=== PATIENT | female | born 1985 | race Caucasian/White ===

== ENCOUNTER 2016-09-02 20:31 | Emergency (ER) | payer OTHER ==
[~2016-09-02] VITALS: Ht 162.6 cm; Wt 54.4 kg
[2016-09-02] MEDS ORDERED: CITA20TA4 PO (21:24)
[2016-09-02] MEDS ORDERED: SUBUTEX PO (21:24)
[2016-09-02] MEDS ORDERED: PRENTAB81 PO (21:24)
--- NOTE | 2016-09-02 21:26 | PD ---
HPI Chief Complaint drug abuser needs viability test to be acted , having no problem Date Seen: September 02, 2016 Travel History International Travel<30 Days: No Contact w/Intl Traveler<30Days: No Known Affected Area: No History of Present Illness HPI 31 yo WF PCS [2] at 24 wks going into drug rehab , needs " viability" test before being allowed into rehab / acted , no complaints , FHR WNL Para: 2 : 3 History Obstetric History Obstetric History C section 2 Past Surgical History Narrative Surgical C sections Social History Alcohol Use: Yes Tobacco Use: Yes Substance Abuse: Yes Review of Systems General / Constitutional: No: Fever, Weight Gain, Chills, Other Eyes: No: Diploplia, Blurred Vision, Visual changes, Pain, Photophobia HENT: No: Headaches, Vertigo, Lightheadedness Cardiovascular: No: Irregular Rhythm, Chest Pain or Discomfort, Palpitations, Tachycardia, Syncope, Varicosities, Edema, Cyanosis Respiratory: No: Cough, Short of Breath, Other Gastrointestinal: No: Nausea, Vomiting, Diarrhea Genitourinary: No: Decreased Urinary Output, Oliguria Musculoskeletal: No: Limited ROM, Weakness, Cramping, Edema, Pain Skin: No Rash, No Itching, No Dryness, No Lumps, No Change in Pigmentation, No Change in Nails, No Alopecia, No Lesions Neurologic: No: Weakness, Dizziness, Syncope, Focal Abnormalities, Coordination Problem, Headache, Slurred Speech, Seizures Psychiatric: No: Depression, Suicidal Ideations, Homicidal Ideation Endocrine: No: Heat Intolerance, Cold Intolerance, Polydipsia, Polyuria, Other Physical Exam Narrative GENERAL: Well-nourished, well-developed patient. SKIN: Warm and dry. HEAD: Normocephalic and atraumatic. EYES: No scleral icterus. No injection or drainage. ENT: No nasal drainage noted. Mucous membranes pink. Airway patent. NECK: Supple, trachea midline. No JVD. CARDIOVASCULAR: Regular rate and rhythm without murmurs, gallops, or rubs. RESPIRATORY: Breath sounds equal bilaterally. No accessory muscle use. BREASTS: Bilateral exam showed no masses , no retractions, no nipple discharge. ABDOMEN/GI: Abdomen soft, non-tender, bowel sounds present, no rebound, no guarding Gravid to [24-] weeks size Fundal Height: [24-] GENITOURINARY: External G ] Presentation: [vtx-] Membranes: [intact Uterine Contractions: [0-] FHT's: Category: [1-] Baseline: [144-] EXTREMITIES: No cyanosis or edema. BACK: Nontender without obvious deformity. No CVA tenderness. NEUROLOGICAL: Awake and alert. Motor and sensory grossly within normal limits. Five out of 5 muscle strength in all muscle groups. Normal speech. Data Data Labs US -- viable female , + CM , nl AFV , ant placenta , normal anatomy scan MDM Interpretation(s) 31 yo WF PCS at 24 wks with normal fetus on US Plan Admit to rehab Diagnosis Diagnosis: Primary Impression: Drug abuse during Disposition: 01 DISCHARGE HOME Condition: Stable Patient Instructions: General Instructions Departure Forms: Tests/Procedures Enrique Zepeda II, MD September 02, 2016 21:26
[2016-09-03] MEDS ORDERED: BUPR2SUB SL (23:46)
== END 2016-09-02 21:52 | disposition home or self-care (01) ==
LOC: HOBED 20:31
DX: O99.322 Drug use complicating pregnancy, second trimester (principal); F19.10 Other psychoactive substance abuse, uncomplicated; Z3A.24 24 weeks gestation of pregnancy
CPT/HCPCS: 76815

== ENCOUNTER → 2016-12-31 | Outpatient (CLI) | payer MEDICAID ==
[~2016-12-31] MED LIST: BUSP10TA PO; CITA20TA4 PO; MEDR150I IM; MULT-65 PO; TRAZ50TA12 PO
[2016-12-31 13:17] LABS: AUTOMATED NEUTROPHIL # 4.1 TH/MM3 (1.8-7.7); BASOPHIL # 0.1 TH/MM3 (0-0.2); BASOPHIL % 0.9 % (0.0-2.0); EOSINOPHIL # 0.2 TH/MM3 (0-0.4); EOSINOPHIL % 2.5 % (0.0-4.0); HEMATOCRIT 35.7 % (35.0-46.0); LYMPH % 40.2 % (9.0-44.0); LYMPHOCYTE # 3.2 TH/MM3 (1.0-4.8); MEAN CELL VOLUME 82.6 FL (80.0-100.0); MEAN CORPUSCULAR HEMOGLOBIN 28.3 PG (27.0-34.0); MEAN CORPUSCULAR HGB CONC 34.2 % (32.0-36.0); MONO % 5.4 % (0.0-8.0); PLATELET COUNT 216 TH/MM3 (150-450); RED BLOOD COUNT 4.32 MIL/MM3 (4.00-5.30); RED CELL DISTRIBUTION WIDTH 14.1 % (11.6-17.2)
[2016-12-31 13:20] LABS: BLOOD, URINE SMALL (NEG); COMMENT (UR) CULT NOT INDICATED; CULTURE IF INDICATED CULT NOT INDICATED; GLUCOSE,URINE NEG (NEG); KETONE, URINE NEG (NEG); NITRITE,URINE NEG (NEG); PH, URINE 6.5 (5.0-8.5); SQUAMOUS EPITHELIAL CELL URINE <1 /hpf (0-5); URINE COLOR LIGHT-YELLOW (YELLW/STRAW)
[2016-12-31 13:27] LABS: ALT (GPT) 43 U/L (10-53); ANION GAP 7 MEQ/L (5-15); AST (GOT) 28 U/L (15-37); BICARBONATE 24.9 MEQ/L (21.0-32.0); BLOOD UREA NITROGEN 8 MG/DL (7-18); CHLORIDE 102 MEQ/L (98-107); GLOMERULAR FILTRATION RATE 89 ML/MIN (>89); GLUCOSE,FASTING 77 MG/DL (74-99); POTASSIUM 4.1 MEQ/L (3.5-5.1); SODIUM (NA) 134 MEQ/L (136-145)
[2016-12-31 13:29] LABS: ALKALINE PHOSPHATASE 72 U/L (45-117); TOTAL BILIRUBIN ADULT 0.3 MG/DL (0.2-1.0)
[2016-12-31 13:47] LABS: HEMO FLAGS AUTO DIFF
[2016-12-31 13:48] LABS: PLATELET ESTIMATE SMEAR NORMAL (NORMAL); PLATELET MORPHOLOGY NORMAL (NORMAL)
[2016-12-31 13:49] LABS: SCAN/DIFF AUTO DIFF CONFIRMED
== END ==
LOC: CPRE 12:12
PROVIDERS: ATTEND Obstetrics & Gynecology Gynecology
DX: Z01.812 Encounter for preprocedural laboratory examination (principal); Z30.2 Encounter for sterilization
CPT/HCPCS: 36415; 80053; 81001; 85025

== ENCOUNTER → 2017-01-10 | Day surgery (SDC) | payer MEDICAID ==
--- NOTE | 2016-12-31 12:47 | MH ---
cc: LANA WORRELL MD, JESSE S. MD DATE OF ADMISSION: 01/03/2017 DATE OF : 1985 REASON FOR ADMISSION: Scheduled for admission on January 03 for laparoscopic salpingectomy. The patient is a 31-year-old white female 3, para 3, status post two C-sections and one V-Back who wants to proceed with surgical sterilization. Patient is presently in rehab with [facility]. She has been off of opioids for several months, she quit cigarette smoking about four months ago. She is on Depo-Provera now. The patient has history of hepatitis C, otherwise negative for heart, lung, liver disease, diabetes or stroke. MEDICATIONS 1. Depo-Provera. 2. Trazodone 50 mg q.h.s. 3. BuSpar 10 mg b.i.d. 4. Celexa 20 mg 20 mg daily. ALLERGIES None PAST SURGICAL HISTORY x2 SOCIAL HISTORY Formal she SOCIAL HISTORY In rehab presently drug-free was 20 pack-year smoking history, quit 4 months ago has a good social support. OBSTETRICAL HISTORY Two C-sections on the back GYNECOLOGIC HISTORY History of ask is type Pap smear followed up by [facility] TECHNICIAN FAMILY HISTORY Noncontributory. REVIEW OF SYSTEMS Review of systems as above. No chest pain, orthopnea, PND. No nausea or chills. No vaginal bleeding or discharge. PHYSICAL EXAMINATION: VITAL SIGNS: On her exam she is afebrile. vital signs stable blood pressure is 120/70, height 5'4", Weight 144, BMI is 24.7. IN GENERAL: The patient is alert and oriented in no acute distress. No sign of cognitive dysfunction, or depression. HEAD, EYES, EARS, NOSE, AND THROAT: Within normal limits. NECK: Supple. No JVD. CHEST: Clear. HEART: Regular rate and rhythm. ABDOMEN: The abdomen is soft, nontender. No hepatosplenomegaly. No costovertebral angle tenderness. PELVIC EXAMINATION Will be detailed under anesthesia. EXTREMITIES: Normal. NEUROLOGIC: Nonfocal, no deep venous thrombosis signs. ASSESSMENT Patient with multiparity desires sterilization. PLAN: The patient discussed options for management treatment. She is aware the risks returns procedure including damage to surrounding organs, bleeding, infection, possibility that she may still be in the future with a risk of approximately 1:500. She is also aware of infertility the irreversibility procedure, alternative methods and issues regarding surgical risk that are increased because per history of two C-sections. The patient has elected to proceed, she as expressed understanding with the plan, has made informed choice. The patient's Medicaid tubal consent form was signed in October 2016. We anticipate outpatient procedure. We will use Ancef 2 grams IV for antibiotic prophylaxis. DVT prophylaxis, sequential compression device. Patient is aware we will not be using any narcotics postoperatively after discharge and should be managed with either tramadol or Toradol. MD LILLIE Randall/adithya /12:26 PM /12:36 PM
[~2017-01-10] VITALS: Ht 160 cm; Wt 66.4 kg
[~2017-01-10] MED LIST changes: +*MEPERIDINE 25 MG INJ VIAL PERIprocedural Use ONLY ONE; +BUPIVACAINE/EPINEPHRINE 0.5% PF 10 ML VIAL ONE; +CHLORHEXIDINE GLUCONATE 2 % 1 PACK (2 CLOTHS) TOPICAL PRN; +DO NOT ADM ANY ANTICOAGULANT DRUGS PRN; +INSULIN HUMAN REGULAR 1,000 UNITS/10 ML VIAL SQ PRN; +KETOROLAC TROMETHAMINE 30 MG/ML (IVP) VIAL IV PUSH PRN; +KETOROLAC TROMETHAMINE 30 MG/ML (IVP) VIAL ONE; +KETOROLAC TROMETHAMINE 60 MG/2 ML (IM) VIAL IM ONE; +KETOROLAC TROMETHAMINE 60 MG/2 ML (IM) VIAL IM PRN; +LACTATED RINGER'S 1000 ML INJ 1,000 ML IV ONE; +LACTATED RINGER'S 1000 ML IV PRN; -MEDR150I IM; +METOPROLOL TARTRATE 25 MG TAB PO PRN; +MIDAZOLAM HCL 2 MG/2 ML VIAL ONE; +ONDANSETRON HCL 4 MG/2 ML VIAL IV PUSH ONE; +ONDANSETRON HCL 4 MG/2 ML VIAL IV PUSH PRN; +POVIDONE IODINE 5% (ANTISEPSIS KIT) 4 APPLICATIONS EACH NARE PRN; +PROPOFOL 200 MG/20 ML AMP IV ONE; +PROPOFOL 200 MG/20 ML AMP ONE; +SODIUM CHLORID 0.9% 500 ML IV PRN; +SUGAMMADEX SODIUM 200 MG/2 ML VIAL IV PUSH ONE; +ceFAZolin 2 GM PREMIX 50 ML IV SCH; +traMADol HCL 50 MG TAB PO PRN
[2017-01-10 12:35] VITALS: BP 120/83; PULSE 85; RESP 18; TEMP 98.7; O2SAT 99
--- NOTE | 2017-01-13 08:16 | MP ---
cc: LANA WORRELL MD [facility],[place] ADMAE MD DATE OF SURGERY: 01/10/2017 PREOPERATIVE DIAGNOSES Multiparity, desires sterilization. POSTOPERATIVE DIAGNOSES Multiparity, desires sterilization, retrograde menstruation and mild endometriosis near tubes. PROCEDURE Bilateral salpingectomy. SURGEON Dr. Worrell. ANESTHESIA General endotracheal with OG tube. BLOOD LOSS 5 ccs. PERFORMANCE IMPROVEMENT COORDINATOR [place] staff x1. FLUIDS 1000 ccs crystalloid. URINE OUTPUT 100 ccs. FINDINGS External genitalia normal. POP-Q score: Aa is -2, Ap is -1. Point C is -6. Total vaginal length is 10. Genital hiatus is 5. Perineal body is 5. The uterus is retroverted, retroflexed, boggy and retrograde menstruation is noted. Small areas of possibly powder burn type endometriosis near the tubes. No significant nodular type lesions appreciated. Appendix is normal. Upper abdomen normal. Liver and gallbladder normal. SPECIMENS Right and left tube. COMPLICATIONS None. DISPOSITION Recovery room stable. COUNTS Needle, sponge count correct. DRAINS Copeland catheter. DISPOSITION To the recovery room stable. DVT PROPHYLAXIS Sequential compression device. ANTIBIOTIC PROPHYLAXIS Ancef 2 grams. TIME-OUT PROCEDURE Per protocol. SUMMARY OF INDICATION FOR PROCEDURE The patient with multiparity desires sterilization. PROCEDURE The patient was taken to the operating room theater, identified, prepped and draped in a fashion appropriate for planned procedure. She was in dorsal lithotomy position with careful attention paid to placement of legs in stirrups to avoid undue stress to sensitive neurovascular structures. Above findings noted. Neurovascular integrity documented. Copeland catheter was placed. Marcaine and epinephrine solution was placed in the umbilicus. A 5 mm scope was placed under direct visualization. Right lower extremity trocar 8 mm was placed suprapubically and left lower quadrant had a 5 mm trocar placed under direct visualization. Above findings were noted. Tubes were mobile and some area suggestive of powder burn type endometriosis. Salpingectomy technique was performed after identifying the infundibulopelvic ligament and make sure the bowel was out of the way. Ureters were definitely and clearly out of the area of dissection. The right tube was taken down by coming across the mesosalpinx with Harmonic energy without complication. The tube was removed. Hemostasis was good. On the left side same procedure was performed using the harmonic energy coming across the mesosalpinx and the tube at the cornu. Hemostasis was good with and without gas pressure. Pelvis was inspected. Above findings were noted. Hemostatic powder was used for added reassurance. Trocars were removed under direct visualization. Incisions were closed with 4-0 Vicryl suture, subcu and then Dermabond. The patient tolerated the procedure well and went to the recovery room in stable condition. MD LILLIE Randall/NING /10:47 AM /7:55 AM
== END | disposition home or self-care (01) ==
LOC: HSDC 07:49
PROVIDERS: ATTEND Obstetrics & Gynecology Gynecology
DX: Z30.2 Encounter for sterilization (principal); N83.8 Other noninflammatory disorders of ovary, fallopian tube and broad ligament; N92.5 Other specified irregular menstruation; B19.20 Unspecified viral hepatitis C without hepatic coma; D64.9 Anemia, unspecified; F32.9 Major depressive disorder, single episode, unspecified; Z87.891 Personal history of nicotine dependence; Z79.899 Other long term (current) drug therapy
CPT/HCPCS: 00840; 58661; 84703; 88302; J0690; J1885; J2175; J2250; J2405; J3010; J7120